=== PATIENT | male | born 1995 | race Caucasian/White ===

== ENCOUNTER 2022-04-11 13:18 | Emergency (ER) | payer BC, SELFPAY ==
[2022-04-11 13:29] VITALS: BP 122/81; PULSE 84; RESP 16; TEMP 37.1; O2SAT 97
--- NOTE | 2022-04-11 13:45 | ED_ITS ---
HPI - Abdominal Pain General: Chief Complaint: Abdominal Pain Stated Complaint: pelvic pain Time Seen by Provider: 04/11/22 13:45 History of Present Illness: Mr. Schilling is a 26-year-old gentleman without significant past medical history presents to the emergency department due to concern over incarcerated hernia. He reports being at his baseline health the past few days. He was lifting something heavy earlier at work when he had sudden onset of severe right groin pain. He presented to clinic and was evaluated by Dr. Alva with exam concerning for intestines in the scrotum with exquisite tenderness. He was unable to reduce this in clinic and referred the patient to the ER for further evaluation. Patient denies similar episodes in the past however in the late did have a testicle surgery for too much blood flow and swelling, unsure of which side. Overall intensity of pain is moderate to severe and worse with any sitting or movement or palpation. No other specific changes in health, exacerbating, or alleviating factors identified. Onset (ago): hour(s) Pain Consistency: constant Location: Groin Severity: severe Quality: aching Exacerbating factors: movement Relieving factors: nothing Context: other Associated Symptoms: Reports no associated symptoms Review of Systems General: Reports: 10 or more systems reviewed and unremarkable except in HPI and below PFSH ED PFSH: Medical History (Updated 04/19/22 @ 00:01 by ) No significant past medical history Surgical History (Updated 04/11/22 @ 15:09 by Sohan Greene MD) History of testicular surgery Physical Exam Const: COMMON NORMALS: alert GENERAL APPEARANCE: cooperative and well developed HENMT: COMMON NORMALS: normocephalic and atraumatic HEAD & SCALP: normocephalic and atraumatic Eye: COMMON NORMALS: conjunctivae normal CONJUNCTIVA: Yes conjunctivae normal SCLERA: sclerae normal Neck/C-Spine: COMMON NORMALS: supple GENERAL: Yes trachea midline Resp: COMMON NORMALS: clear to auscultation bilaterally EFFORT & INSPECTION: Yes able to speak in complete sentences AUSCULTATION: clear to auscultation bilaterally Cardio: COMMON NORMALS: regular rate and regular rhythm RATE: regular rate RHYTHM: regular rhythm GI: COMMON NORMALS: Soft to palpation PALPATION: Yes Soft to palpation and No Tenderness to palpation present (GI) PERCUSSION: normal to percussion : OTHER: Unremarkable examination of the penis. The right testicle is tender to palpation as is the spermatic cord. No overlying skin changes or evidence of abscess/cellulitis. Extremity: GENERAL: Yes normal exam except as noted and No edema Neuro: COMMON NORMALS: moves all extremities SENSORIUM/ORIENTATION: Yes alert and No Orientation impaired Psych: COMMON NORMALS: mental status grossly normal and Normal thought process present THOUGHT PROCESS: Normal thought process present Course ED course: - Patient was seen and evaluated by me at bedside - Patient placed on cardiac monitors, IV access obtained - Initial evaluation notable for exam as above, uncomfortable appearing due to pain - Labs personally interpreted by me -Analgesia given - Labs notable for leukocytosis which may be reactive. No acute metabolic abnormality. Evidence of urinary tract affection though only trace bacteria - Imaging notable for no evidence of hernia on CT. Scrotal ultrasound without evidence of testicular torsion or epididymoorchitis. - Upon serial reexamination after treatment the patient was improved - Based on patient history, evaluation, and testing as interpreted the most likely cause of the patient's condition is still epididymitis despite ultrasound findings. No concern over new sexual partners. - The results of ED evaluation were discussed with the patient including prescriptions and/or symptomatic cares (if applicable) including appropriate and responsible use, followup plan, and return precautions. The patient verbalized understanding and felt safe for discharge. - Patient discharged in satisfactory condition. Note: Click bubbles or prepopulated gruber in note writing are used for assistance with data collection and billing and are inherently more limited than narrative and other text portions of this note. Please use narrative for additional clinical history and defer to narrative/free test for any case of contradictory information. If information appears in only free text or click bubble it should be considered present or absent as reported. Please contact note senior grant writer for clarifications of clinical information or contradictory information. MDM is a brief summary, contradictory or erroneous seeming information should be clarified and full note should be reviewed. Vital Signs: Vital signs: Vital Signs Temperature 98.7 F 04/11/22 13:29 Pulse Rate 79 04/11/22 17:30 Respiratory Rate 14 04/11/22 17:37 Blood Pressure 121/68 04/11/22 17:30 Pulse Oximetry 95 04/11/22 17:37 Oxygen Delivery Me thod 04/11/22 17:30 MDM - Abdominal Pain Medical Decision Making 26-year-old gentleman referred from clinic for concern over incarcerated hernia due to right inguinal and scrotal swelling/pain. No evidence of hernia on CT. Scrotal ultrasound performed without significant acute abnormality. There is evidence of pyuria without significant bacteria on urinalysis. Clinically patient appears to have epididymitis and will be treated as such. Satisfactory for outpatient management with return precautions given. Medical Records I reviewed the patient's medical records. Lab Data I reviewed the patient's lab results. : 04/11/22 14:40 04/11/22 14:40 Labs/Radiology: Radiology Impressions Abdomen/Pelvis CT 04/11/22 13:48 IMPRESSION: 1. No hernia identified. 2. Mild circumferential urinary bladder wall thickening. Correlate with urinalysis to exclude cystitis. 3. Additional findings, as above. Scrotum Ultrasound 04/11/22 15:17 IMPRESSION: 1. No sonographic evidence of testicular torsion or epididymo-orchitis. 2.Additional findings, as above. Laboratory Results WBC 16.9 10^3/uL (4.0-10.0) H 04/11/22 14:40 RBC 5.47 10^6/uL (4.1-5.3) H 04/11/22 14:40 Hgb 16.6 g/dL (11.7-16.6) 04/11/22 14:40 Hct 48.0 % (42.0-52.0) 04/11/22 14:40 MCV 87.8 fl (80-94) 04/11/22 14:40 MCH 30.3 pg (28.0-34.0) 04/11/22 14:40 MCHC 34.6 g/dL (30.0-36.0) 04/11/22 14:40 RDW 12.8 % (12.1-15.1) 04/11/22 14:40 Plt Count 244 10^3/cmm (130-400) 04/11/22 14:40 MPV 10.5 fL (7.4-10.4) H 04/11/22 14:40 Neut % (Auto) 84.2 % 04/11/22 14:40 Lymph % (Auto) 10.6 % 04/11/22 14:40 Giles % (Auto) 4.4 % 04/11/22 14:40 Eos % (Auto) 0.1 % 04/11/22 14:40 Baso % (Auto) 0.3 % 04/11/22 14:40 Neut # (Auto) 14.20 10^3/uL (1.8-7.7) H 04/11/22 14:40 Lymph # (Auto) 1.8 10^3/uL (0.8-4.8) 04/11/22 14:40 Giles # (Auto) 0.8 10^3/uL (0.2-0.9) 04/11/22 14:40 Eos # (Auto) 0.0 10^3/uL (0.0-0.8) 04/11/22 14:40 Baso # (Auto) 0.1 10^3/uL (0.0-0.1) 04/11/22 14:40 Nucleated RBC % (auto) 0 % 04/11/22 14:40 Nucleated RBCs # 0.0 /100WBC 04/11/22 14:40 Sodium 139 mmol/L (136-145) 04/11/22 14:40 Potassium 4.3 mmol/L (3.5-5.1) 04/11/22 14:40 Chloride 101 mmol/L (98-107) 04/11/22 14:40 Carbon Dioxide 26 mmol/L (22-29) 04/11/22 14:40 Anion Gap 16.3 (5-19) 04/11/22 14:40 BUN 13 mg/dL (6-20) 04/11/22 14:40 Creatinine 0.9 mg/dL (0.7-1.2) 04/11/22 14:40 GFR Calculation 102.0 mL/min (90-130) 04/11/22 14:40 Glucose 129 mg/dL (65-115) H 04/11/22 14:40 Calculated Osmolality 290 mOsm/kg (285-295) 04/11/22 14:40 Lactate 1.1 mmol/L (0.5-2.2) 04/11/22 14:40 Calcium 10.3 mg/dL (8.5-10.5) 04/11/22 14:40 Total Bilirubin 0.5 mg/dL (0.15-1.2) 04/11/22 14:40 AST 36 U/L (0-40) 04/11/22 14:40 ALT 61 U/L (0-41) H 04/11/22 14:40 Alkaline Phosphatase 70 IU/L (40-130) 04/11/22 14:40 Total Protein 7.6 g/dL (6.6-8.7) 04/11/22 14:40 Albumin 4.8 g/dL (3.5-5.2) 04/11/22 14:40 Globulin 2.8 g/dL (1.3-4.6) 04/11/22 14:40 Urine Color Straw (Yellow) 04/11/22 16:20 Urine Appearance Hazy (CLEAR) A 04/11/22 16:20 Urine pH 7 (5-7) 04/11/22 16:20 Ur Specific [place] 1.000 (1.005-1.030) L 04/11/22 16:20 Urine Protein Neg (Negative) 04/11/22 16:20 Urine Glucose (UA) Norm (Normal) 04/11/22 16:20 Urine Ketones Negative (Negative) 04/11/22 16:20 Urine Blood 2+ (Negative) H 04/11/22 16:20 Urine Nitrate Negative (Negative) 04/11/22 16:20 Urine Bilirubin Neg (Negative) 04/11/22 16:20 Urine Urobilinogen Norm mg/dL (Negative) 04/11/22 16:20 Ur Leukocyte Esterase 2+ (Negative) H 04/11/22 16:20 Urine RBC 15-25 /hpf (0-2) H 04/11/22 16:20 Urine WBC 55-80 /hpf (0-5) H 04/11/22 16:20 Ur Squamous Epith Cells None /hpf (0-5) 04/11/22 16:20 Amorphous Sediment Not Reportable 04/11/22 16:20 Urine Bacteria Trace /hpf (NONE) 04/11/22 16:20 Urine Mucus Trace /hpf 04/11/22 16:20 Urine Sperm 2+ /hpf 04/11/22 16:20 Discharge Plan Discharge Patient Disposition: Home Clinical Impression: Testicular/scrotal pain, Epididymitis Condition: Stable Prescriptions: No Action oxycodone 5 mg tablet 5 mg PO BID PRN (Reason: pain) 7 Days Qty: 14 0RF Discharge Orders: Discharge ED (Routine); Ordered 04/11/22 Ordered By: Sohan Greene Discharge Diet: Usual diet Discharge Activity: Limit activity as instructed Patient Instructions: Epididymo-Orchitis (ED), Scrotal Pain (ED), Opioid Safety Activity Restrictions/Additional Instructions: Thank you for visiting the emergency department. You were seen and evaluated for scrotal and testicular pain. The exact cause of your symptoms is unclear though likely related to infection of the epididymis. This will be treated with antibiotics. You may use [id number] medications for symptoms as well as the previously prescribed oxycodone. Please use opioids cautiously. Please follow-up with your primary care provider, if symptoms persist please follow-up with urology. Return to the emergency department for uncontrolled symptoms or anything else that you are concerned about and feel needs emergency department evaluation. 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
--- NOTE | 2022-04-11 13:48 | CTR_ITS ---
PROCEDURE INFORMATION: Exam: CT Abdomen And Pelvis With Contrast Exam date and time: 04/11/2022 2:59 PM Age: 26 years old Clinical indication: Pain; Other: Groin; Additional info: Groin pain, suspected incarcerated hernia TECHNIQUE: Imaging protocol: Computed tomography of the abdomen and pelvis with contrast. Axial, coronal and sagittal reformatted images were created and reviewed. Radiation optimization: All CT scans at this facility use at least one of these dose optimization techniques: automated exposure control; mA and/or kV adjustment per patient size (includes targeted exams where dose is matched to clinical indication); or iterative reconstruction. Contrast material: OMNI 350; Contrast volume: 80 ml; Contrast route: INTRAVENOUS (IV); COMPARISON: No relevant prior studies available. RADIATION DOSE METRICS: Total DLP (mGy-cm): 1075.43 FINDINGS: Liver: Mild hepatomegaly. Diffuse hepatic steatosis. Gallbladder and bile ducts: No radiodense gallstones. No biliary ductal dilatation. Pancreas: Unremarkable. Spleen: Unremarkable. Adrenal glands: Normal. No mass. Kidneys and ureters: No mass. No radiodense calculi. No hydronephrosis. Stomach and bowel: No bowel wall thickening. No obstruction. No pneumatosis. Appendix: Normal. Intraperitoneal space: No free fluid. No organized fluid collection. No free air. Vasculature: Unremarkable. No aneurysm. Lymph nodes: No pathologically enlarged lymph nodes. Urinary bladder: Mild circumferential urinary bladder wall thickening. Reproductive: Unremarkable. Bones/joints: No acute osseous abnormality. Soft tissues: Unremarkable. CT/CT abdomen pelvis w con* [id number] IMPRESSION: 1. No hernia identified. 2. Mild circumferential urinary bladder wall thickening. Correlate with urinalysis to exclude cystitis. 3. Additional findings, as above.
[2022-04-11 14:47] LABS: Basophils # 0.1 10^3/uL (0.0-0.1); Basophils % 0.3 %; Eosinophils % 0.1 %; Hemoglobin 16.6 g/dL (11.7-16.6); Lymphocytes # 1.8 10^3/uL (0.8-4.8); Lymphocytes % 10.6 %; Mean Corpuscular HGB Conc 34.6 g/dL (30.0-36.0); Mean Corpuscular Hemoglobin 30.3 pg (28.0-34.0); Mean Corpuscular Volume 87.8 fl (80-94); Mean Platelet Volume 10.5 fL (7.4-10.4); Monocytes # 0.8 10^3/uL (0.2-0.9); Monocytes % 4.4 %; Neutrophils % 84.2 %; Nucleated Red Blood Cells % 0 %; Platelet Count 244 10^3/cmm (130-400); Red Blood Count 5.47 10^6/uL (4.1-5.3); Red Cell Distribution Width 12.8 % (12.1-15.1); White Blood Count 16.9 10^3/uL (4.0-10.0)
[2022-04-11 15:06] LABS: Lactate (Lactic Acid level) 1.1 mmol/L (0.5-2.2)
[2022-04-11 15:10] LABS: Alanine Aminotransferase 61 U/L (0-41); Albumin Level 4.8 g/dL (3.5-5.2); Alkaline Phosphatase 70 IU/L (40-130); Anion Gap 16.3 (5-19); Aspartate Amino Transferase 36 U/L (0-40); Blood Urea Nitrogen 13 mg/dL (6-20); Calcium 10.3 mg/dL (8.5-10.5); Carbon Dioxide 26 mmol/L (22-29); Chloride 101 mmol/L (98-107); Globulin 2.8 g/dL (1.3-4.6); Glucose 129 mg/dL (65-115); Osmolality Calculated 290 mOsm/kg (285-295); Potassium 4.3 mmol/L (3.5-5.1); Sodium 139 mmol/L (136-145); Total Bilirubin 0.5 mg/dL (0.15-1.2); Total Protein 7.6 g/dL (6.6-8.7)
[2022-04-11 15:16] VITALS: RESP 15; O2SAT 97
[2022-04-11] MEDS: fentaNYL 50 mcg/mL INJ 2mL 75 MCG IVP (15:16)
--- NOTE | 2022-04-11 15:17 | USR_ITS ---
PROCEDURE INFORMATION: Exam: US Scrotum Exam date and time: 04/11/2022 3:46 PM Age: 26 years old Clinical indication: Groin pain and scrotum pain; Prior surgery; Surgery date: 6+ months; Additional info: R testicular pain, scrotal swelling, eval torsion TECHNIQUE: Imaging protocol: Real-time ultrasound of the scrotum and contents with color Doppler and image documentation. COMPARISON: CT abdomen pelvis w con* [id number] 04/11/2022 2:59 PM FINDINGS: Right testicle: Normal. No mass. No torsion. Normal vascular flow. Left testicle: Normal. No mass. No torsion. Normal vascular flow. Epididymides: 4 x 5 x 3 mm cyst or spermatocele in the right epididymal head. Scrotum: Small bilateral varicoceles. Trace right-sided hydrocele. US/US scrotum [id number] IMPRESSION: 1. No sonographic evidence of testicular torsion or epididymo-orchitis. 2.Additional findings, as above.
[2022-04-11] MEDS: ketorolac 30 mg/mL INJ 15 MG IVP (16:45)
[2022-04-11 16:55] LABS: Add Urine Microscopic? YES; Bilirubin Urine Neg (Negative); Blood Urine 2+ (Negative); Glucose Urine UA Norm (Normal); Ketones Urine Negative (Negative); Leukocyte Esterase Urine 2+ (Negative); Nitrate Urine Negative (Negative); Protein Urine Neg (Negative); Urine Appearance Hazy (CLEAR); Urine Color Straw (Yellow); Urobilinogen Urine Norm (Negative); pH Urine 7 (5-7)
[2022-04-11 16:58] LABS: RBC Urine 15-25 /hpf (0-2); WBC Urine 55-80 /hpf (0-5)
[2022-04-11 16:59] LABS: Bacteria Urine TRACE /hpf; Mucus Urine TRACE /hpf
[2022-04-11 17:00] LABS: Add Urine Culture? Yes; Sperm Urine 2+ /hpf
[2022-04-11 17:01] VITALS: BP 122/70; PULSE 74; RESP 14; O2SAT 97
[2022-04-11 17:30] VITALS: BP 121/68; PULSE 79; RESP 14; O2SAT 98
[2022-04-11 17:37] VITALS: RESP 14; O2SAT 95
[2022-04-11] MEDS: cefTRIAXone 500 mg SDV IM (17:37)
[2022-04-11] MEDS: levoFLOXacin 500 mg Tablet PO (17:37)
[2022-04-11] MEDS: oxyCODONE 5 mg IR Tab/Cap PO (17:37)
[2022-04-11] MEDS: iohexol 350 mg/mL 100 mL Btl IV (18:39)
== END 2022-04-11 17:45 | disposition home or self-care (01) ==
PROVIDERS: Emergency Provider Emergency Medicine
DX: N45.1 Epididymitis (principal)
CPT/HCPCS: 74177; 76870; 80053; 81001; 83605; 85025; 87086; 96372; 96374; 96375; 99285; J0696; J1885; J3010; Q9967